=== PATIENT | female | born 1975 | race Two or more races ===

== ENCOUNTER 2024-03-09 15:51 | Inpatient (IN) | payer MEDICAID ==
[~2024-03-09] VITALS: Ht 162.6 cm; Wt 65.9 kg
[2024-03-09 16:30] LABS: Basophils # (auto) 0 10 ^3/uL (0-0.2); Eosinophils # (auto) 0.2 10 ^3/uL (0-0.8); Eosinophils % (auto) 1.9 % (0.0-7.0); Lymphocytes # (auto) 3.2 10 ^3/uL (0.4-5.4); Mean Corpuscular Hemoglobin 30.5 pg (28.0-32.0); Mean Corpuscular Hgb Conc. 33.6 g/dL (32.0-36.0); Mean Corpuscular Volume 90.9 fL (80.0-100.0); Monocytes # (auto) 0.9 10 ^3/uL (0-1.3); Neutrophils # (auto) 6.3 10 ^3/uL (1.6-8.6)
[2024-03-09 16:31] LABS: Basophils % (auto) 0.3 % (0.0-2.0); Hematocrit 39.4 % (36.0-46.0); Hemoglobin 13.2 g/dL (12.2-16.2); Lymphocytes % (auto) 30.4 % (10.0-50.0); Monocytes % (auto) 8.5 % (0.0-12.0); Neutrophils % (auto) 58.9 % (37.0-80.0); Platelet Count (auto) 508 10^3/uL (140-450); Red Blood Cells 4.34 10^6/uL (4.0-5.20); Red Cell Distribution Width 14.9 % (11.8-14.3); White Blood Cell 10.6 10^3/uL (4.4-10.8)
[2024-03-09 16:46] LABS: Alanine Aminotransferase < 9 U/L (7-40); Albumin 4.4 g/dL (3.2-4.8); Alkaline Phosphatase 72 U/L (46-116); Anion Gap 4 (5-15); Aspartate Aminotransferase 13 U/L (13-40); BUN/Creatinine Ratio 14.6 (10.0-20.0); Bilirubin, Total 0.2 mg/dL (0.2-1.0); Blood Urea Nitrogen 12 mg/dL (9-23); Calcium 9.9 mg/dL (8.7-10.4); Carbon Dioxide 28 mmol/L (20-30); Chloride 109 mmol/L (98-107); Glucose 93 mg/dL (74-106); Potassium 4.7 mmol/L (3.5-5.1); Sodium 141 mmol/L (136-145); Total Protein 6.8 g/dL (5.7-8.2)
[2024-03-09 18:25] LABS: Urine Bacteria None Seen /hpf (None Seen)
[2024-03-09] MEDS: ASPirin 325 MG TAB PO ONE (18:25)
[2024-03-09] MEDS: NITROGLYCERIN 0.4 MG SL TAB SL ONE (18:28)
[2024-03-09 18:47] LABS: Amphetamine Screen, Urine Neg (NEGATIVE); Barbiturate Scree,Urine Neg (NEGATIVE); Benzodiazephine Screen, Urine Neg (NEGATIVE); Cannabinoid Screen, Urine Pos (NEGATIVE); Cocaine Screen, Urine Neg (NEGATIVE); Opiate Scree,Urine Neg (NEGATIVE); Phencyclidine Screen, Urine Neg (NEGATIVE); Urine Blood 3+ /uL (Negative); Urine Clarity Clear (Clear); Urine Color Light-Yellow (Yellow); Urine Mucus FEW (None Seen); Urine Protein, UAD TRACE (Negative); Urine Specific Gravity 1.023 (1.001-1.035); Urine Urobilinogen Normal (Negative); Urine WBC 5 /hpf (0 - 5)
[2024-03-09] MEDS ORDERED: DOCUSATE SOD 100 MG CAP PO PRN (19:15)
[2024-03-09] MEDS ORDERED: NITROGLYCERIN 0.4 MG SL TAB SL PRN (19:15)
[2024-03-09] MEDS ORDERED: MORPHINE SULFATE INJ 2 MG/ml SYRG IV PRN (19:15)
[2024-03-09] MEDS ORDERED: ONDANSETRON HCL 4 MG/2 ML VIAL IV PRN (19:15)
[2024-03-09] MEDS ORDERED: ACETAMINOPHEN 325 MG TAB PO PRN (19:15)
[2024-03-09 20:44] VITALS: PULSE 83; RESP 24; O2SAT 98
[2024-03-09] MEDS: LISINOPRIL 5 MG TAB PO ONE (20:53)
[2024-03-09] MEDS: SODIUM CHLOR 0.9% PF (SALINE LOCK) 10ML VIAL/SYR IV SCH (20:53)
[2024-03-09 22:56] VITALS: PULSE 65
[2024-03-10] VITALS (8 sets, daily range): BP systolic 102–152; BP diastolic 66–108; PULSE 48–117; RESP 17–22; TEMP 97.9–98.8; O2SAT 95–98
[2024-03-10 07:13] LABS: Basophils # (auto) 0.1 10 ^3/uL (0-0.2); Basophils % (auto) 0.7 % (0.0-2.0); Eosinophils # (auto) 0.2 10 ^3/uL (0-0.8); Eosinophils % (auto) 1.4 % (0.0-7.0); Hematocrit 38.9 % (36.0-46.0); Hemoglobin 13.2 g/dL (12.2-16.2); Lymphocytes # (auto) 2.4 10 ^3/uL (0.4-5.4); Lymphocytes % (auto) 21.8 % (10.0-50.0); Mean Corpuscular Hemoglobin 30.7 pg (28.0-32.0); Mean Corpuscular Volume 90.3 fL (80.0-100.0); Monocytes # (auto) 0.8 10 ^3/uL (0-1.3); Monocytes % (auto) 7.5 % (0.0-12.0); Neutrophils # (auto) 7.4 10 ^3/uL (1.6-8.6); Neutrophils % (auto) 68.6 % (37.0-80.0); Nucleated Red Blood Cells % 0.1 %; Platelet Count (auto) 480 10^3/uL (140-450); Red Cell Distribution Width 14.6 % (11.8-14.3); White Blood Cell 10.8 10^3/uL (4.4-10.8)
[2024-03-10 07:27] LABS: Albumin 4.3 g/dL (3.2-4.8); Alkaline Phosphatase 71 U/L (46-116); Anion Gap 5 (5-15); Aspartate Aminotransferase 10 U/L (13-40); BUN/Creatinine Ratio 10.6 (10.0-20.0); Blood Urea Nitrogen 7 mg/dL (9-23); Calcium 9.7 mg/dL (8.7-10.4); Carbon Dioxide 27 mmol/L (20-30); Chloride 109 mmol/L (98-107); Glucose 96 mg/dL (74-106); Potassium 3.7 mmol/L (3.5-5.1); Sodium 141 mmol/L (136-145)
[2024-03-10 07:28] LABS: Bilirubin, Total 0.5 mg/dL (0.2-1.0); Total Protein 6.9 g/dL (5.7-8.2)
[2024-03-10 07:29] LABS: Alanine Aminotransferase < 9 U/L (7-40)
[2024-03-10] MEDS: LISINOPRIL 5 MG TAB PO SCH (09:25)
[2024-03-10] MEDS: LORazepam 0.5 MG TAB PO ONE (20:11)
[2024-03-11] VITALS (8 sets, daily range): BP systolic 103–142; BP diastolic 64–96; PULSE 69–130; RESP 16–22; TEMP 97.7–98.6; O2SAT 95–98
[2024-03-11] MEDS: LORazepam 0.5 MG TAB PO PRN (10:02)
[2024-03-11] MEDS: NICOTINE 21MG/24 HR TOPICAL PATCH TD SCH (10:04)
[2024-03-11] MEDS: FLUoxetine HCL 20 MG CAP PO SCH (19:13)
[2024-03-11] MEDS: LORazepam 2MG/ML-1ML VIAL IV PRN (19:13)
[2024-03-11] MEDS ORDERED: LISI-275 PO (19:23)
[2024-03-11] MEDS ORDERED: FLUO40CA PO (19:23)
[2024-03-12 01:00] VITALS: BP 124/87; PULSE 77; RESP 20; TEMP 98.2; O2SAT 97
[2024-03-12 05:00] VITALS: BP 150/96; PULSE 90; RESP 20; TEMP 98.2; O2SAT 98
[2024-03-12 08:15] VITALS: PULSE 74
[2024-03-12 09:00] VITALS: BP 125/81; PULSE 98; RESP 18; TEMP 98.7; O2SAT 96
== END 2024-03-12 14:12 | disposition home or self-care (01) | DRG 199 ==
LOC: ER 15:51 → TELE 19:20 → TELE-WESTW 19:20
PROVIDERS: ADMIT Internal Medicine; ATTEND Emergency Medicine
DX: I16.0 Hypertensive urgency (principal); F12.10 Cannabis abuse, uncomplicated; F17.290 Nicotine dependence, other tobacco product, uncomplicated; I10 Essential (primary) hypertension; F41.9 Anxiety disorder, unspecified; F32.A Depression, unspecified; Z98.891 History of uterine scar from previous surgery; Z91.148 Patient's other noncompliance with medication regimen for other reason; Z79.899 Other long term (current) drug therapy
CPT/HCPCS: 36415; 71045; 80053; 80307; 81001; 81025; 83880; 84443; 84484; 85025; 85379; 93005; 93306; G0378